=== PATIENT | female | born 1970 | race Caucasian/White ===

== ENCOUNTER 2020-05-25 11:20 | Day surgery (SDC) | payer MEDICAID ==
[~2020-05-25] VITALS: Ht 160 cm; Wt 82.7 kg
[2020-05-25 11:29] VITALS: BP 144/76
[2020-05-25] MEDS ORDERED: fentaNYL/PF 50MCG/1 ML 2ML syringe ONE (11:35)
[2020-05-25] MEDS ORDERED: LIDOcaine Viscous 15ml cup ONE (11:35)
[2020-05-25] MEDS ORDERED: MIDAZolam 5mg/5ml vial ONE (11:35)
[2020-05-25] MEDS ORDERED: BUPR100T5 PO (11:47)
[2020-05-25] MEDS ORDERED: OMEP-50 PO (11:47)
[2020-05-25 12:07] VITALS: BP 144/88
[2020-05-25 12:17] VITALS: BP 108/76
[2020-05-25 12:27] VITALS: BP 110/64
[2020-05-25 12:37] VITALS: BP 121/67
== END 2020-05-25 12:40 | disposition home or self-care (01) ==
LOC: GI LAB 11:20
PROVIDERS: ATTEND Internal Medicine Gastroenterology
DX: K31.7 Polyp of stomach and duodenum (principal); K29.50 Unspecified chronic gastritis without bleeding
CPT/HCPCS: 43239; 43251; 99152; C1773; J2250; J3010; J7040; A4620